=== PATIENT | male | born 2000 | race African-American/Black ===

== ENCOUNTER 2022-04-11 11:29 | Emergency (ER) | payer OTHER ==
[2022-04-11] MEDS ORDERED: Acetaminophen 500 MG TAB ONE (12:07)
[2022-04-11] MEDS ORDERED: Ketorolac Tromethamine 30 MG/ML VIAL ONE (12:07)
[2022-04-11 13:13] LABS: SARS-CoV-2 NAA Rapid Test DETECTED (NotDetected)
== END 2022-04-11 13:27 | disposition home or self-care (01) ==
LOC: ERS 11:29
DX: U07.1 COVID-19 (principal)
CPT/HCPCS: 96372; J1885; U0002